=== PATIENT | male | born 2000 ===

== ENCOUNTER 2024-12-28 16:40 | Emergency (ER) | payer SELFPAY | END 2024-12-28 18:45 | disposition home or self-care (01) | LOC: ERS 16:40 | DX: H66.91 Otitis media, unspecified, right ear (principal); R11.2 Nausea with vomiting, unspecified; R19.7 Diarrhea, unspecified; Z55.6 Problems related to health literacy | CPT/HCPCS: 87428; 99282; Q0162 ==